=== PATIENT | female | born 1980 | race African-American/Black ===

== ENCOUNTER 2020-11-12 19:03 | Emergency (ER) | payer OTHER ==
[~2020-11-12] VITALS: Ht 160 cm; Wt 73.0 kg
[~2020-11-12 19:03] MED LIST: FLAGYL500 MG PO; NOHOMEMEDICATIONS
[2020-11-12] MEDS ORDERED: LISINOPRIL5 MG PO (19:21)
[2020-11-12] MEDS ORDERED: LIPITOR 10 MG10 M1 PO (19:22)
[2020-11-12] MEDS ORDERED: WELLBUTRIN SR150 M1 PO (19:22)
[2020-11-12] MEDS ORDERED: DIFLUCAN150 MG PO (20:31)
[2020-11-12] MEDS ORDERED: FLAGYL500 M1 PO (20:31)
[2020-11-12 20:46] LABS: URINE BILIRUBIN NEGATIVE (Negative); URINE BLOOD TRACE (Negative); URINE CLARITY CLOUDY; URINE COLOR YELLOW; URINE GLUCOSE-RANDOM* NEGATIVE (Negative); URINE KETONES NEGATIVE (Negative); URINE NITRITE-REFLEX NEGATIVE (Negative); URINE PROTEIN (DIPSTICK) 1+ (Negative); URINE SPECIFIC GRAVITY >= 1.030 (1.005-1.035)
[2020-11-12 20:47] LABS: URINE LEUKOCYTES-REFLEX 2+ (Negative)
[2020-11-12 20:58] LABS: BACTERIA-REFLEX >30 Many /HPF (None Seen); CASTS None Seen /LPF (None Seen); CRYSTALS None Seen /LPF (None Seen); MUCUS 4-6 Moderate strn/LPF (None Seen); SQUAMOUS >10 Many /LPF (0-3); URINE RBC 3-10 Few /HPF (NONE SEEN); WBC CLUMPS Few (None Seen)
[2020-11-12 21:26] VITALS: BP 123/81
== END 2020-11-12 21:26 | disposition home or self-care (01) ==
LOC: ER 19:03
PROVIDERS: Emergency Medicine
DX: A59.01 Trichomonal vulvovaginitis (principal); F12.90 Cannabis use, unspecified, uncomplicated; I10 Essential (primary) hypertension; E78.00 Pure hypercholesterolemia, unspecified; F17.210 Nicotine dependence, cigarettes, uncomplicated; Z79.899 Other long term (current) drug therapy